=== PATIENT | male | born 1945 | race Two or more races ===

== ENCOUNTER 2016-06-06 19:18 | Emergency (ER) | payer BC ==
[~2016-06-06] VITALS: Ht 180.3 cm; Wt 84.4 kg
[2016-06-06] MEDS ORDERED: PLAVIX75 MG PO (23:37)
[2016-06-06] MEDS ORDERED: VITAMIN D31000 UNI1 PO (23:38)
[2016-06-06] MEDS ORDERED: OS-CAL 500+D31 EAC1 PO (23:38)
== END 2016-06-06 22:20 | disposition short-term general hospital (02) ==
LOC: ER 19:18 → RT 19:19 → ER 19:20
DX: G45.9 Transient cerebral ischemic attack, unspecified (principal); Q21.1 Atrial septal defect; E78.5 Hyperlipidemia, unspecified; Z79.82 Long term (current) use of aspirin; Z79.899 Other long term (current) drug therapy
CPT/HCPCS: J1650